=== PATIENT | female | born 1995 | race Two or more races ===

== ENCOUNTER 2017-11-22 11:00 | Emergency (ER) | payer OTHER ==
[2017-11-22] MEDS ORDERED: DEXAMETHASONE 10 MG/ML VIAL PO STA (12:04)
--- NOTE | 2017-11-22 12:06 | ED Physician Documentation ---
PD HPI BACK INJURY - Stated complaint Stated Complaint: BACK INJ - History obtained from History obtained from: Patient - History of Present Illness Location: Right, Lower Type of injury: Other (pushing a heavy object onto an aircraft) Where injury occurred: Work Timing - onset: Enter time (1000) Timing - duration: Hours (2) Timing - details: Abrupt onset, Still present Pain level max: 8 Pain level now: 5 Quality: Pain, Spasm, Sharp, Similar to prior episodes Improved by: Rest, Immobilization Worsened by: Moving, Palpating Associated symptoms: No: Fever, Weakness, Numbness, Incontinent of urine, Unable to urinate, Hematuria, Incontinent of stool Similar symptoms before: Diagnosis (back strain) Recently seen: Not recently seen - Additional information Additional information: 22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 She was pushing this heavy object when she felt a snap in her back in the right lower side. She has pain radiating down the right leg to the lateral aspect of the thigh and around to the front. She denies any saddle anesthesia she denies any difficulty with bowel or bladder. She is able to walk and has some increased pain when she attempts to walk. Review of Systems Constitutional: denies: Fever Eyes: denies: Decreased vision Ears: denies: Ear pain Nose: denies: Congestion Throat: denies: Sore throat Cardiac: denies: Chest pain / pressure, Palpitations Respiratory: denies: Dyspnea, Cough GI: denies: Abdominal Pain, Nausea, Vomiting : denies: Dysuria, Frequency Skin: denies: Lesions Musculoskeletal: reports: Back pain, Extremity pain. denies: Neck pain Neurologic: denies: Generalized weakness, Focal weakness, Numbness PD PAST MEDICAL HISTORY - Past Medical History Past Medical History: No - Past Surgical History Past Surgical History: Yes - Present Medications Home Medications: Ambulatory Orders Medication Instructions Recorded Confirmed Nitrofurantoin Monohyd/M-Cryst 100 mg PO BID 5 Days capsule 06/18/16 06/19/16 [Macrobid 100 mg Capsule] predniSONE [Prednisone] 40 mg PO DAILY 3 Days tablet 06/18/16 06/19/16 Cephalexin [Keflex] 500 mg PO Q6H #28 capsule 06/19/16 Phenazopyridine [Pyridium] 100 mg PO Q8H PRN #9 tablet 06/19/16 Cyclobenzaprine [Flexeril] 10 mg PO TID PRN #20 tablet 11/22/17 HYDROcod/ACETAM 5/325 [[place] 5/325] 1 - 2 ea PO Q6H PRN #15 tablet 11/22/17 - Allergies Allergies/Adverse Reactions: Allergies Allergy/AdvReac Type Severity Reaction Status Date / Time No Known Drug Allergies Allergy Verified 11/22/17 11:05 - Social History Does the pt smoke?: No Smoking Status: Never smoker Does the pt drink ETOH?: Yes Does the pt have substance abuse?: No - Immunizations Immunizations are current?: Yes PD ED PE NORMAL - Vitals Vital signs reviewed: Yes (normal ) - General General: Alert and oriented X 3, No acute distress, Well developed/nourished - HEENT HEENT: Atraumatic, PERRL, EOMI - Neck Neck: Supple, no meningeal sign - Respiratory Respiratory: No respiratory distress - Back Back: No CVA TTP, No spinal TTP, Other (There is specific tenderness to the right lower lumbar paraspinous muscles ) - Derm Derm: Normal color, Warm and dry - Extremities Extremities: No deformity, No edema - Neuro Neuro: Alert and oriented X 3, No motor deficit, No sensory deficit, Normal speech Eye Opening: Spontaneous Motor: Obeys Commands Verbal: Oriented GCS Score: 15 - Psych Psych: Normal mood, Normal affect Results - Vitals Vitals: Vital Signs - 24 hr 11/22/17 11:03 Temperature 36.3 C L Heart Rate 77 Respiratory 18 Rate Blood Pressure 119/75 O2 Saturation 100 Oxygen O2 Source Room air PD MEDICAL DECISION MAKING - ED course Complexity details: considered differential, d/w patient ED course: 22-year-old female with a prior history of back strain has developed acute sciatica this morning after pushing a heavy object onto a plane. She does not have any symptoms or signs of cauda equina. She does have radicular symptoms consistent with acute disc rupture. 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 I have instructed her to avoid using a heating pack and use ice and stretch. Departure - Departure Disposition: 01 Home, Self Care Clinical Impression: Sciatica Qualifiers: Laterality: right Qualified Code(s): M54.31 - Sciatica, right side Condition: Stable Instructions: ED Sciatica Follow-Up: GABBIE Rao [Provider Group] Prescriptions: Cyclobenzaprine [Flexeril] 10 mg PO TID PRN #20 tablet PRN Reason: Spasms HYDROcod/ACETAM 5/325 [[place] 5/325] 1 - 2 ea PO Q6H PRN #15 tablet PRN Reason: Pain Forms: Activity restrictions
[2017-11-22 12:20] VITALS: BP 115/79
== END 2017-11-22 12:21 | disposition home or self-care (01) ==
LOC: ED 11:00
DX: M54.31 Sciatica, right side (principal); X50.0XXA Overexertion from strenuous movement or load, initial encounter; Y92.138 Other place on military base as the place of occurrence of the external cause; Y99.1 Military activity
CPT/HCPCS: 99283

== ENCOUNTER 2020-09-29 02:09 | Emergency (ER) | payer OTHER ==
[2020-09-29 02:30] VITALS: BP 140/67
--- NOTE | 2020-09-29 02:52 | ED Physician Documentation ---
PD HPI SKIN - Stated complaint Stated Complaint: RT EAR SWELLING - Chief complaint Chief Complaint: Wound - History obtained from History obtained from: Patient - History of Present Illness Timing - onset: How many days ago (2) Timing - duration: Days (2) Timing - details: Gradual onset Pain level max: 7 Pain level now: 7 Location: Other (R ear) Quality / character: Painful, Swelling, Draining Worsened by (comment): COMMENT (worse with movement. Patient suspects infection. Cartilage piercing of R ear done a few days ago.) Review of Systems Constitutional: denies: Fever Ears: reports: Ear pain, Drainage/discharge Skin: reports: Other (swelling, erythema) PD PAST MEDICAL HISTORY - Past Medical History Past Medical History: Yes - Past Surgical History Past Surgical History: Yes - Present Medications Home Medications: Ambulatory Orders Medication Instructions Recorded Confirmed Mupirocin 22 gm TP TID 10 Days #1 oint...g. 09/29/20 cephALEXin [Keflex] 500 mg PO Q6H #28 capsule 09/29/20 - Allergies Allergies/Adverse Reactions: Allergies Allergy/AdvReac Type Severity Reaction Status Date / Time No Known Drug Allergies Allergy Verified 09/29/20 02:30 - Social History Does the pt smoke?: No Smoking Status: Never smoker Does the pt drink ETOH?: Yes Does the pt have substance abuse?: No - Immunizations Immunizations are current?: Yes - POLST Patient has POLST: No PD ED PE NORMAL - Vitals Vital signs reviewed: Yes - General General: Alert and oriented X 3 - HEENT HEENT: Atraumatic, PERRL, EOMI, Ears normal (Ears normal with exception of swelling/erythema to R superior aspect of auricle with two earrings in place with surrounding purulence. earrings removed without incident) Results - Vitals Vitals: Vital Signs - 24 hr 09/29/20 02:17 Temperature 36.8 C Heart Rate 80 Respiratory 16 Rate Blood Pressure 140/67 H O2 Saturation 98 Oxygen O2 Source Room air PD MEDICAL DECISION MAKING - ED course ED course: 25-year-old woman presented with an infected earrings. I removed 2 earrings from her right superior auricle along the cartilage and prescribed her antibiotics. Return precautions given. She will follow up with her primary doctor Departure - Departure Disposition: Home, Self Care Clinical Impression: Infected embedded earring, Cellulitis Condition: Good Instructions: Cellulitis Dc Prescriptions: cephALEXin [Keflex] 500 mg PO Q6H #28 capsule Mupirocin 22 gm TP TID 10 Days #1 oint...g. Discharge Date/Time: 09/29/20 02:58
== END 2020-09-29 02:58 | disposition home or self-care (01) ==
LOC: ED 02:09
DX: H60.11 Cellulitis of right external ear (principal); T16.1XXA Foreign body in right ear, initial encounter; M79.5 Residual foreign body in soft tissue; X58.XXXA Exposure to other specified factors, initial encounter
CPT/HCPCS: 99282; 99283

== ENCOUNTER 2020-10-01 08:00 | Outpatient (CLI) | payer SELFPAY | END 2020-10-01 08:01 | disposition home or self-care (01) | LOC: LAB.R 08:00 | PROVIDERS: ATTEND Physician Assistant Medical | DX: H60.391 Other infective otitis externa, right ear (principal) | CPT/HCPCS: 87070; 87181; 87205 ==